=== PATIENT | female | born 1970 | race Caucasian/White ===

== ENCOUNTER 2019-06-05 15:40 | Emergency (ER) | payer BC ==
[~2019-06-05] VITALS: Ht 162.6 cm; Wt 72.6 kg
[~2019-06-05 15:40] MED LIST: CYMBALTA20 MG PO; ELMIRON; METHOCARBAMOL500 M1 PO; NORCO 5-325 TA1 EACH PO; OXECTA5 MG PO; SAVELLA12.5 MG PO; TRAMADOL 50 MG50 MG PO; TRAZODONE 150150 M1; [UNRECOGNIZED DRUG - REMARK]
[2019-06-05 16:20] LABS: ABSOLUTE EOSINOPHILS 0.1 thou/uL (0.0-0.7); ABSOLUTE MONOCYTES 0.3 thou/uL (0.0-1.2); ABSOLUTE NEUTROPHILS 4.9 thou/uL (1.6-8.1); BASOPHILS 0.4 %; EOSINOPHILS 1.6 %; HEMATOCRIT 35.3 % (37.0-47.0); HEMOGLOBIN 12.1 gm/dL (12.0-15.0); LYMPHOCYTES 26.8 %; MCH 30.7 pg (26.0-34.0); MCHC 34.3 g/dL (28.0-37.0); MCV 89.4 fL (80.0-100.0); MONOCYTES 4.1 %; NUCLEATED RBCS 0 /100WBC; PLATELET COUNT* 233 thou/uL (150-400); POLYS 67.1 %; RBC 3.95 mil/uL (4.20-5.00); WBC 7.3 thou/uL (4.0-11.0)
[2019-06-05 16:35] LABS: CALCIUM 9.5 mg/dL (8.5-10.1); CREATININE 0.9 mg/dL (0.6-1.3); POTASSIUM 3.3 mmol/L (3.5-5.1)
[2019-06-05 16:42] LABS: ALBUMIN 3.7 g/dL (3.4-5.0); CK-MB MASS 0.7 ng/mL (<0.5-3.6); TOTAL BILIRUBIN 0.3 mg/dL (<0.1-1.0); TOTAL PROTEIN 7.3 g/dL (6.4-8.2)
[2019-06-05 16:56] LABS: INR 1.1; PROTIME 10.8 Seconds (9.20-11.50)
[2019-06-05 16:57] LABS: APTT 24.5 Seconds (25.0-31.3)
[2019-06-05 17:57] VITALS: BP 112/60
--- NOTE | 2019-06-06 16:04 | EKG ---
[place] [address] ELECTROCARDIOGRAM REPORT Name: JUAREZANUJA Room: [facility]#: [id number] Admission: 06/05/19 Attend Phys: Discharge: 06/05/19 Date of : 70 Report #: [id number] THIS REPORT FOR: //name// [facility] ED Test Date: 2019-06-05 Test Time: 15:44:47 Pat Name: ANUJA PIZARRO Department: Room: Gender: F [employer]: ANN MARIE : 1970 Requested By: Geoff Pizano Order Number: [id number] MD: Yan Escobar Measurements Intervals [place] Rate: 47 P: ND: QRS: 161 QRSD: 108 T: 24 QT: 538 QTc: 476 Interpretive Statements Junctional rhythm Left posterior fascicular block Borderline T abnormalities, anterior leads Borderline prolonged QT interval Baseline wander in lead(s) I,II,III,aVR,aVF,V1 Compared to ECG 01/04/2014 16:51:15 Junctional rhythm now present Left posterior fascicular block now present T-wave abnormality now present Sinus bradycardia no longer present Electronically Signed On 06-06-2019 16:03:41 [employer]ATCHERY HELPER by Yan Escobar [email or web address] <ELECTRONICALLY SIGNED> By: Yan Escobar MD, FAC 06/06/19 1603 1544 1544 Yan Escobar MD, [facility] /EPI
== END 2019-06-05 17:58 | disposition home or self-care (01) ==
LOC: M.ERS 15:40
PROVIDERS: Family Medicine
DX: R10.13 Epigastric pain (principal); M79.7 Fibromyalgia; F32.9 Major depressive disorder, single episode, unspecified; F17.210 Nicotine dependence, cigarettes, uncomplicated; Z88.5 Allergy status to narcotic agent; Z88.8 Allergy status to other drugs, medicaments and biological substances; Z90.710 Acquired absence of both cervix and uterus; Z90.49 Acquired absence of other specified parts of digestive tract

== ENCOUNTER 2020-01-08 20:10 | Emergency (ER) | payer BC ==
[~2020-01-08] VITALS: Ht 154.9 cm; Wt 64.0 kg
[2020-01-08 21:08] LABS: ABSOLUTE EOSINOPHILS 0.2 thou/uL (0.0-0.7); ABSOLUTE LYMPHOCYTES 2.7 thou/uL (0.8-5.3); ABSOLUTE MONOCYTES 0.5 thou/uL (0.0-1.2); ABSOLUTE NEUTROPHILS 4.9 thou/uL (1.6-8.1); BASOPHILS 0.5 %; EOSINOPHILS 2.1 %; HEMOGLOBIN 13.6 gm/dL (12.0-15.0); LYMPHOCYTES 32.6 %; MCH 30.6 pg (26.0-34.0); MCV 90.2 fL (80.0-100.0); MPV 10.3 fl. (7.2-11.1); NUCLEATED RBCS 0 /100WBC; PLATELET COUNT* 238 thou/uL (150-400); POLYS 58.8 %; RBC 4.44 mil/uL (4.20-5.00); RDW-CV 12.7 % (10.5-14.5); WBC 8.3 thou/uL (4.0-11.0)
[2020-01-08 21:16] LABS: CREATININE 0.8 mg/dL (0.6-1.3); POTASSIUM 3.4 mmol/L (3.5-5.1)
[2020-01-08 21:23] LABS: URINE BILIRUBIN NEGATIVE (Negative); URINE BLOOD 2+ (Negative); URINE CLARITY CLEAR; URINE COLOR YELLOW; URINE GLUCOSE-RANDOM NEGATIVE (Negative); URINE KETONES NEGATIVE (Negative); URINE LEUKOCYTES-REFLEX NEGATIVE (Negative); URINE NITRITE-REFLEX NEGATIVE (Negative); URINE PROTEIN NEGATIVE (Negative); URINE SPECIFIC GRAVITY 1.025 (1.005-1.030)
[2020-01-08 21:27] LABS: ALBUMIN 4.3 g/dL (3.4-5.0); MAGNESIUM 2.4 mg/dL (1.8-2.4); PROTIME 10.6 Seconds (9.20-11.50); TOTAL BILIRUBIN 0.4 mg/dL (<0.1-1.0); TOTAL PROTEIN 8.2 g/dL (6.4-8.2)
[2020-01-08 21:39] LABS: SQUAMOUS 0-3 Few /LPF (0-3); URINE WBC-REFLEX 6-15 Few /HPF (0-5)
[2020-01-08 21:40] LABS: BACTERIA-REFLEX >30 Many /HPF (None Seen); CASTS None Seen /LPF (None Seen); CRYSTALS None Seen /LPF (None Seen); MUCUS >6 Heavy strn/LPF (None Seen); URINE RBC 3-10 Few /HPF (0-2)
[2020-01-08] MEDS ORDERED: KEFLEX500 M2 PO (23:02)
[2020-01-08 23:10] VITALS: BP 110/60
--- NOTE | 2020-01-09 09:42 | EKG ---
[place] [address] ELECTROCARDIOGRAM REPORT Name: JUAREZANUJA Room: [facility]#: [id number] Admission: 01/08/20 Attend Phys: Discharge: 01/08/20 Date of : 70 Date of Service: 01/08/202015 Report #: [id number] THIS REPORT FOR: //name// [facility] ED Test Date: 2020-01-08 Test Time: 20:16:14 Pat Name: ANUJA PIZARRO Department: Room: Gender: F System Validation Engineer: : 1970 Requested By: Jennifer Crowder Order Number: [id number] MD: Van Barger Measurements Intervals [place] Rate: 60 P: 48 PA: 165 QRS: 231 QRSD: 98 T: 9 QT: 448 QTc: 448 Interpretive Statements Sinus rhythm Right ventricular hypertrophy, possible Borderline T abnormalities, anterior leads Compared to ECG 06/05/2019 15:44:47 Possible right ventricular hypertrophy now present Junctional rhythm no longer present T-wave abnormality still present Electronically Signed On 01-09-2020 9:42:10 CDT by Van Barger [email or web address] <ELECTRONICALLY SIGNED> By: Van Barger MD, FACC 01/09/20 0942 15 15 Van Barger MD, FAC /EPI
== END 2020-01-08 23:15 | disposition home or self-care (01) ==
LOC: M.ERS 20:10
PROVIDERS: Emergency Medicine
DX: R07.89 Other chest pain (principal); M79.7 Fibromyalgia; F32.9 Major depressive disorder, single episode, unspecified; Z90.710 Acquired absence of both cervix and uterus; Z90.49 Acquired absence of other specified parts of digestive tract; Z88.6 Allergy status to analgesic agent; Z88.8 Allergy status to other drugs, medicaments and biological substances